=== PATIENT | male | born 1960 | race Caucasian/White ===

== ENCOUNTER 2017-03-25 05:50 | Day surgery (SDC) | payer BC ==
[2017-03-25] MEDS ORDERED: Lactated Ringers 1,000 ML IV SCH (07:00)
--- NOTE | 2017-03-25 08:51 | OP ---
SURGERY DATE/TIME: 03/25/2017813 PREOPERATIVE DIAGNOSIS: Screening colonoscopy. POSTOPERATIVE DIAGNOSIS: Normal colon. PROCEDURE: Colonoscopy. SURGEON: Edmund Sutherland M.D. ANESTHESIA: MAC by Arie Maddox CRNA. ESTIMATED BLOOD LOSS: None. SPECIMENS: None. DESCRIPTION OF PROCEDURE: After informed written consent was obtained, the patient was taken to the endoscopy suite. He underwent monitored anesthesia and a digital rectal exam performed and showed normal sphincter tone and no internal lesions. The scope was inserted in the rectum and sequentially the entire colonic mucosa was traversed. The level of cecum was reached and verified with direct visualization of ileocecal valve. Upon withdrawal careful mucosal inspection revealed no gross abnormalities. Prep was noted to be fair. Prior to withdrawal retroflexion was performed and was within normal limits. The scope was removed and the patient was transferred to the recovery room in excellent condition.
[2017-03-25] MEDS ORDERED: DIPRIVAN 200 MG/20 ML IV ONE (09:00)
[2017-03-25] MEDS ORDERED: Versed 2 MG/2 ML Injection IV ONE (09:00)
[2017-03-25 09:23] VITALS: PULSE 68; O2SAT 95
[2017-03-25 09:51] VITALS: BP 129/81
== END 2017-03-25 10:02 | disposition home or self-care (01) ==
LOC: SDC 05:50
PROVIDERS: ATTEND Family Medicine
PROC: 0DJD8ZZ Inspection of Lower Intestinal Tract, Via Natural or Artificial Opening Endoscopic (ICD-10-PCS; principal; 2017-03-25)
DX: Z12.11 Encounter for screening for malignant neoplasm of colon (principal)
CPT/HCPCS: 00810; J2250; J2704

== ENCOUNTER 2019-01-05 14:05 | Day surgery (SDC) | payer BC ==
[2019-01-05] MEDS ORDERED: Decadron 4 MG INJ IV ONE (14:06)
[2019-01-05] MEDS ORDERED: Xylocaine 1% Vial 30 ML PF IJ ONE (14:06)
[2019-01-05] MEDS ORDERED: Sodium Chloride 0.9(Preservative Free) 10 ML IJ ONE (14:06)
--- NOTE | 2019-01-05 16:30 | XRAY ---
Indication: Cervical DANIAL. Intraoperative fluoroscopy was provided for 42 seconds. Single digital spot image submitted for interpretation demonstrates midline posterior needle tip projecting approximately T2 level. Small amount of contrast injected for needle tip placement. Correlate with intraoperative findings/report.
--- NOTE | 2019-01-05 16:33 | XRAY ---
42 seconds fluoroscopy time in surgery for cervical DANIAL.
== END 2019-01-05 15:49 | disposition home or self-care (01) ==
LOC: SDC-PAIN 14:05
PROVIDERS: ATTEND Psychiatry & Neurology Pain Medicine
DX: M54.2 Cervicalgia (principal); M54.12 Radiculopathy, cervical region; I10 Essential (primary) hypertension; E11.9 Type 2 diabetes mellitus without complications; Z79.899 Other long term (current) drug therapy
CPT/HCPCS: 72040; 77003; J1100; J2001